=== PATIENT | female | born 1985 | race Caucasian/White ===

== ENCOUNTER 2016-12-06 13:47 | Observation (INO) | payer BC ==
[~2016-12-06] VITALS: Ht 182.9 cm; Wt 109.2 kg
[2016-12-06 14:53] VITALS: BP 155/76; PULSE 117; TEMP 98
[2016-12-06 15:13] VITALS: BP 144/74; PULSE 96
[2016-12-06 15:28] VITALS: BP 148/66; PULSE 95
[2016-12-06 15:43] VITALS: BP 137/77; PULSE 96
[2016-12-06 16:00] VITALS: BP 148/74; PULSE 94
[2016-12-06] MEDS ORDERED: GLUCOPHAGE500 MG/TAB PO (16:35)
[2016-12-06] MEDS ORDERED: SPRINTEC 35 MCG1 TAB PO (16:35)
[2016-12-06] MEDS ORDERED: WELLBUTRIN XL150 MG PO (16:36)
[2016-12-06 22:14] VITALS: BP 145/66; PULSE 88; TEMP 98.6
[2016-12-07 02:40] VITALS: BP 120/48; PULSE 88; TEMP 98.6
[2016-12-07 05:44] VITALS: BP 118/60; PULSE 86; TEMP 98.5
[2016-12-07 11:50] VITALS: TEMP 98.1
[2016-12-07 12:00] VITALS: BP 155/92; PULSE 80
[2016-12-07 12:19] VITALS: BP 149/85; PULSE 85
[2016-12-07 13:42] VITALS: BP 148/88; PULSE 88
== END 2016-12-07 14:01 | disposition home or self-care (01) ==
LOC: JCC 13:47
DX: N20.1 Calculus of ureter (principal); F32.9 Major depressive disorder, single episode, unspecified; I10 Essential (primary) hypertension; E11.9 Type 2 diabetes mellitus without complications
CPT/HCPCS: C1769; C2617; G0378; J0690; J1885; J2270; J2405; J2704; J3010; J7030; Q9967